=== PATIENT | female | born 1965 | race Two or more races ===

== ENCOUNTER 2022-04-02 11:21 | Emergency (ER) | payer OTHER ==
[~2022-04-02] VITALS: Ht 167.6 cm; Wt 74.8 kg
[2022-04-02] MEDS ORDERED: MULTI VITAMIN1 EACH PO (12:08)
[2022-04-02] MEDS ORDERED: VITAMIN C100 MG PO (12:09)
[2022-04-02] MEDS ORDERED: VITAMIN D31 ML PO (12:10)
[2022-04-02] MEDS ORDERED: TOPROL XL25 M1 PO (15:05)
== END 2022-04-02 15:17 | disposition home or self-care (01) ==
LOC: ER 11:21
DX: R00.2 Palpitations (principal)